=== PATIENT | male | born 1975 | race Hispanic/Latino ===

== ENCOUNTER 2023-04-10 15:05 | Emergency (ER) | payer OTHER ==
[~2023-04-10] VITALS: Ht 170.2 cm; Wt 120.2 kg
[2023-04-10 15:51] VITALS: BP 148/104; PULSE 64; RESP 16; O2SAT 98
== END 2023-04-10 21:56 | disposition left against medical advice (07) ==
LOC: EDH 15:05
DX: N48.9 Disorder of penis, unspecified (principal); Z53.21 Procedure and treatment not carried out due to patient leaving prior to being seen by health care provider
CPT/HCPCS: 99281

== ENCOUNTER → 2024-06-17 | Outpatient (CLI) | payer OTHER ==
--- NOTE | 2024-06-17 13:48 | HMCIMG ---
CT CORONARY CALCIFICATION SCORING: Anatomic images were reviewed. The calcium score is being generated and reported separately. This report is for the visualized anatomy only. Visualized portions of the lungs are clear. Hilar and mediastinal structures appear normal. Osseous structures are unremarkable. Impression: 1. Negative noncardiac anatomic findings. 2. The calcium score is 91.9 consistent with mild degree of calcified plaque. This is 75th percentile for a patient this age. CT was performed with one or more following dose reduction techniques: automated exposure control, adjustment of the mA and kv according to patient's size, or use of a iterative reconstruction technique.
== END | disposition home or self-care (01) ==
LOC: RAH 11:03
PROVIDERS: ATTEND Internal Medicine Cardiovascular Disease
DX: Z13.6 Encounter for screening for cardiovascular disorders (principal)
CPT/HCPCS: 75571

== ENCOUNTER → 2024-06-28 | Outpatient (CLI) | payer OTHER ==
--- NOTE | 2024-06-30 14:53 | HMCSR ---
APPROVED REPORT EXAM: Two-dimensional and M-mode echocardiogram with Doppler and color Doppler. INDICATION Syncope RISK FACTORS Hyperlipidemia 2D Dimensions IVSd1.1 (0.7-1.1cm)LVEF(%)56.4 (>50%)LA ESV INDEX (BP)13.74 mL/m2 LVDd4.6 (3.8-5.6cm)FS(%)29 % PWd1.1 (0.7-1.1cm)LA (2D)3.5 (1.6-4.0cm) LVDs3.3 (2.5-4.0cm)Ao Root(2D)3.7 (2.0-3.7cm) LVOT diam2.2 (1.8-2.4cm) IVC diam1.4 cm M-Mode Dimensions EPSS0.5 cm LA (MM)3.6 (1.6-4.0cm) Ao Root(MM)3.7 (2.0-3.7cm) Aortic Valve AoV Vmax1.2 m/[place] GR5.7 mmHgLVOT Vmax0.9 m/s AoV VTI0.2 mAo Mean GR3.0 mmHgLVOT VTI0.17 m MARY KAY (VMAX)3.0 cm2AVA (VTI) 3.0 cm2 Mitral Valve MV E Vmax59.3 cm/sDECEL Jjjt299 ms MV A Vmax81.4 cm/s E/A ratio0.7 MR Max PG8 mmHg TDI E/E' Dhktri81.1E/E' Lateral7.1 Pulmonary Valve PV Vmax0.7 m/sPV VTI0.12 mPV Mean GR1 mmHg Tricuspid Valve TR Vmax1.4 m/sRAP (EST) 3 nnEeVSQI67.6 mmHg TR Peak GR7.6 mmHg Left Ventricle Left ventricular cavity size is normal. There is normal LV segmental wall motion. There is normal lef t ventricular wall thickness. LVEF is 55%. No left ventricle thrombus noted on this study. Stage I di astolic dysfunction. Right Ventricle The right ventricle is normal size. The right ventricular systolic function is normal. Atria The left atrium size is normal. The atrial septum is aneurysmal. The right atrium size is normal. Aortic Valve The aortic valve is mildly thickened but opens well. Trivial aortic regurgitation. There is no aortic valvular stenosis. Mitral Valve Mitral regurgitation is trace. There is no mitral valve stenosis. Tricuspid Valve There is trace to mild tricuspid regurgitation. Pulmonic Valve There is no pulmonic valvular stenosis. There is mild valvular regurgitation. Great Vessels The aortic root is normal in size. Ascending aorta is dilated. The IVC is normal in size and collapse s >50% with inspiration. Pericardium Pericardium appears thickened. Conclusion Left ventricular cavity size is normal. There is normal left ventricular wall thickness. LVEF is 55%. Stage I diastolic dysfunction. The right ventricle is normal size. The left atrium size is normal. The aortic valve is mildly thickened but opens well. Trivial aortic regurgitation. Mitral regurgitation is trace. There is no mitral valve stenosis. There is trace to mild tricuspid regurgitation. There is mild valvular regurgitation. The IVC is normal in size and collapses >50% with inspiration. Pericardium appears thickened. The aortic root is normal in size.
== END | disposition home or self-care (01) ==
LOC: SHCH 13:07
PROVIDERS: ATTEND Internal Medicine Cardiovascular Disease
DX: I08.8 Other rheumatic multiple valve diseases (principal); R55 Syncope and collapse; E78.5 Hyperlipidemia, unspecified
CPT/HCPCS: 93306

== ENCOUNTER → 2024-07-16 | Outpatient (CLI) | payer OTHER ==
[2024-07-16] MEDS: REGADENOSON 0.4 MG/5 ML PF SYG IVP ONE (09:39)
--- NOTE | 2024-07-16 17:09 | HMCSR ---
APPROVED REPORT Height: 5 ft 7in Weight: 256 lbs TEST INDICATIONS R55 Syncope and Collapse The imaging protocol used to acquire images was Rest Tc-99m/stress Tc-99m 1 day Consent: The procedure was explained and understood by the patient. Informerd consent was witnessed Marley Ron RN First, low dose rest was performed then high dose stress. RESTING DATA: The resting ekg shows: NSR Rest SPECT myocardial perfusion imaging was performed in supine position 60 minutes following the int ravenous injection of 13.3 mCi of Tc-99 Sestamibi. Time of rest injection: 08:00: Date: 07/16/2024 Time of rest imagin:00: Date: 07/16/2024 PHARMACOLOGIC STRESS: Pharmacologic stress test was performed by injecting regadenoson 0.4 mg IV push followed by the intra venous injection of 33 mCi of Tc-99 Sestamibi. Time of stress injection: 09:25: Date: 07/16/2024 Time of stress imagin:34: Date: 07/16/2024 Heart Rate at time of stress injection: 69 bpm. Gated Stress SPECT was performed 69 minutes after stress injection. The images were gated to evaluate regional wall motion and calculate left ventricular ejection fracti on. STRESS DETAILS Reason for Termination: Infusion complete Stress Symptoms: No chest pain or symptoms Max HR Achieved: 90 bpm % of APMHR Achieved: 53 Max Blood Pressure: 142/95 mmHg Stress ECG: NSR, NSR LEFT VENTRICLE Size: The left ventricular size is normal. Systolic Function:The left ventricular systolic function is normal. Wall Motion: No regional wall motion abnormalities noted. The left ventricular ejection fraction was calculated to be 63%.TID = . LV PERFUSION The rest and stress images show normal perfusion. Conclusion The left ventricular size is normal. The left ventricular systolic function is normal. No regional wall motion abnormalities noted. The rest and stress images show normal perfusion. The rest and stress images show normal perfusion. The left ventricular ejection fraction was calculated to be 63%.
== END | disposition home or self-care (01) ==
LOC: SHCH 07:37
PROVIDERS: ATTEND Internal Medicine Cardiovascular Disease
DX: R55 Syncope and collapse (principal)
CPT/HCPCS: 78452; 93017; J2785; A9500 ×2